=== PATIENT | female | born 2005 | race Caucasian/White ===

== ENCOUNTER 2023-11-05 11:43 | Emergency (ER) | payer SELFPAY ==
[2023-11-05 12:10] VITALS: BP 116/97; PULSE 67; RESP 16; TEMP 36.6; O2SAT 97
== END 2023-11-05 15:19 | disposition left against medical advice (07) ==
LOC: ANHED 15:18
PROVIDERS: PCP Pediatrics
DX: R10.9 Unspecified abdominal pain (principal); R11.0 Nausea; Z53.21 Procedure and treatment not carried out due to patient leaving prior to being seen by health care provider
CPT/HCPCS: 99199